=== PATIENT | male | born 1945 | race Caucasian/White ===

== ENCOUNTER 2018-10-04 12:12 | Emergency (ER) | payer MEDICARE, BC ==
[2018-10-04] MEDS: HYDROCODONE/APAP (10/325) TAB PO (13:51)
== END 2018-10-04 15:55 | disposition home or self-care (01) ==
LOC: FTE 12:12
DX: S91.331A Puncture wound without foreign body, right foot, initial encounter (principal); W45.0XXA Nail entering through skin, initial encounter; Y92.9 Unspecified place or not applicable; Z87.891 Personal history of nicotine dependence
CPT/HCPCS: 73630; 99283-25